=== PATIENT | female | born 1980 | race African-American/Black ===

== ENCOUNTER 2017-03-06 14:01 | Emergency (ER) | payer MEDICAID ==
[~2017-03-06] VITALS: Ht 175.3 cm; Wt 90.0 kg
[2017-03-06 14:03] VITALS: BP 122/77; PULSE 64; RESP 14; TEMP 98.3; O2SAT 99
--- NOTE | 2017-03-06 17:27 | PD ---
HPI Chief Complaint: Skin Problem Time Seen by Provider: 17:23 Travel History International Travel<30 days: No Contact w/Intl Traveler<30days: No Traveled to known affect area: No History of Present Illness HPI 36 old female presents emergency department for evaluation of hyperpigmented spots on her back which she noticed today. The areas are nonpainful. They do not itch. She reports one similar episode years ago which was treated for fungal infection. Symptoms severity mild. No aggravating or alleviating factors. Patient has not tried any home remedies. PFSH Past Medical History Medical History: Denies Significant Hx Tetanus Vaccination: < 5 Years Influenza Vaccination: No ?: Not LMP: 02/13/17 Past Surgical History Surgical History: No Previous Surgery Social History Alcohol Use: Yes (SOCIALLY) Tobacco Use: No Substance Use: No Allergies-Medications (Allergen,Severity, Reaction): Coded Allergies: No Known Allergies (Unverified , 03/06/17) Reported Meds & Prescriptions Reported Meds & Active Scripts Active No Active Prescriptions or Reported Medications Review of Systems Except as stated in HPI: all other systems reviewed are Neg Physical Exam Narrative GENERAL: Well-nourished, well-developed patient. SKIN: Focused skin assessment warm/dry. Several flats hyperpigmented circular areas on patient's upper back. HEAD: Normocephalic. EYES: No scleral icterus. No injection or drainage. NECK: Supple, trachea midline. No JVD or lymphadenopathy. CARDIOVASCULAR: Regular rate and rhythm without murmurs, gallops, or rubs. RESPIRATORY: Breath sounds equal bilaterally. No accessory muscle use. Data Data Last Documented VS Vital Signs Date Time Temp Pulse Resp B/P Pulse Ox O2 Delivery O2 Flow Rate FiO2 03/06/17 14:03 98.3 64 14 122/77 99 MDM Medical Decision Making Medical Screen Exam Complete: Yes Emergency Medical Condition: Yes Differential Diagnosis Tinea versicolor, other Narrative Course 36 old female presents emergency department for evaluation of hyperpigmented areas on her back which she noticed today. The areas are consistent with tinea versicolor she was instructed to use Selsun Blue shampoo and applied to the area daily for the next month. She agrees to plan Diagnosis Primary Impression: Tinea versicolor Referrals: Primary Care Physician Additional Instructions: Apply Selsun Blue shampoo to the area daily for the next month. Scripts No Active Prescriptions or Reported Meds Disposition: 01 DISCHARGE HOME Condition: Stable Petra Emmanuel Mar 06, 2017 17:27
== END 2017-03-06 17:33 | disposition home or self-care (01) ==
LOC: NEPK 14:01
DX: B36.0 Pityriasis versicolor (principal)
CPT/HCPCS: 99282